=== PATIENT | female | born 1955 | race Caucasian/White ===

== ENCOUNTER 2018-12-01 13:07 | Emergency (ER) | payer SELFPAY ==
[~2018-12-01] VITALS: Ht 160 cm; Wt 68.9 kg
[2018-12-01 13:34] VITALS: BP 218/96
--- NOTE | 2018-12-01 14:04 | PHYS DOC ---
Past Medical History Past Medical History: Hypertension Additional Past Medical Histor: ECZEMA,PSORISIS Past Surgical History: Appendectomy, Tubal ligation Alcohol Use: None Drug Use: None Adult General Chief Complaint Chief Complaint: KNEE INJURY HPI HPI 63-year-old female presents to ER for complaints of right knee pain for the past 4 days. She denies any injury or falls. She reports she has had swelling since onset of discomfort. She reports she works at [employer] and stands for several hours during her shift which causes increased pain and swelling at the end of her work day. She denies skin discoloration or numbness/tingling. She reports she took Naproxen last night and again this morning at 10:30 a.m. She denies any pain or cramping in rt calf. She denies any previous hx of clots/ knee surg. She denies any recent travel. She denies inability to walk. She denies using cane/crutches. She denies any use of supportive wraps/braces to rt knee since onset of pain. Review of Systems Review of Systems Constitutional: Denies fever or chills [] Respiratory: Denies cough or shortness of breath [] Cardiovascular: No additional information not addressed in HPI [] Musculoskeletal: Reports pain and swelling rt knee- denies calf pain. Denies pain lt LE Integument: Denies rash or skin lesions [] Neurologic: Denies headache, focal weakness or sensory changes Psych: Reports anxiety with onset of pain and having to stand at work All other systems were reviewed and found to be within normal limits, except as documented in this note. Allergies Allergies Allergies Coded Allergies Type Severity Reaction Last Updated Verified No Known Drug Allergies 12/01/18 No Physical Exam Physical Exam Constitutional: Well developed, well nourished, no acute distress, non-toxic appearance. [] HENT: Normocephalic, atraumatic, oropharynx moist Eyes: Pupils equal, conjunctiva normal, no discharge. [] Neck: Normal range of motion, no tenderness, supple Cardiovascular: Heart rate regular rhythm, no murmur [] Lungs & Thorax: Resp. equal/nonlabored Skin: Warm, dry Extremities: No cyanosis, 2+ bilat. dorsalis pedis/posterior tibial. Lt LE exam NL with full ROM- no pain on palp. of extremity. Rt anterior knee tender on palp. with swelling- no palp. deformity and pt is able to perform full ROM reporting pain with ROM. No edema distal/proximal to rt knee or skin discoloration. Steady unassisted gait Neurologic: Alert and oriented X 3, normal motor function, normal sensory function, no focal deficits noted. [] Psychologic: Affect normal, judgement normal, mood normal. [] Current Patient Data Vital Signs Vital Signs Date Time Temp Pulse Resp B/P (MAP) Pulse Ox O2 Delivery O2 Flow Rate FiO2 12/01/18 13:34 98.2 69 18 218/96 (136) 99 Room Air 98.2 EKG EKG [] Radiology/Procedures Radiology/Procedures PROCEDURE: KNEE RIGHT 3V Right knee 3 views. HISTORY: Right knee pain and swelling 3 views were taken of the right knee. There is mild chondrocalcinosis. There is mild arthritis. There is calcification adjacent to the medial femoral condyle suggesting an old ligamentous injury. There is a joint effusion. IMPRESSION: 1. Chondrocalcinosis. 2. Joint effusion. 3. Mild arthritis. Electronically signed by: Micah Pablo MD (12/01/2018 2:20 PM) [facility] DICTATED and SIGNED BY: MICAH PABLO MD DATE: 12/01/18 4140 Course & Med Decision Making Course & Med Decision Making Pertinent Imaging studies reviewed. (See chart for details) 1505: Pt was evaluated in the ER for complaints of right knee pain and swelling denying any injury. Xray was obtained with report of "1. Chondrocalcinosis. 2. Joint effusion. 3. Mild arthritis" which was discussed with pt. Pt was offered Ibuprofen/tylenol while in ER and preferred no meds as she had taken naproxen at 10:30 a.m. Discussed plans for jose wrap to rt knee. Discussed f/u with orthopedic doctor for re-eval and further care- will provide referral info on discharge paperwork. Education provided on s&s to return to ER for and discharge instructions were discussed. Pt was anxious during ER visit and voiced concerns of her job and standing for hours as this wasn't the job she had applied for- pt encouraged to discuss this with her employer for possible different job role to avoid long standing periods. Discussed pt's elevated BP and she reports her BP tends to elevate with pain/ anxiety- with her reporting pain has made her anxious as she has been uncertain as to cause. Recheck of BP prior to discharge during discharge discussion was 189/93. Pt advised on monitoring at home and to have recheck with PCP. Pt advised on taking her BP med as Rx'd. Following jose wrap application to rt knee she remains vascular intact in rt LE with no skin discoloration distal/proximal to wrap. She reports some improvement in pain with wrap on and is noted to have steady unassisted gait in room. Discussed use of crutches- she felt comfortable with no crutches as she has been able to tolerate pain with walking. Dragon Disclaimer Dragon Disclaimer This electronic medical record was generated, in whole or in part, using a voice recognition dictation system. Departure Departure Impression: Primary Impression: Knee pain, right Additional Impression: Joint effusion of knee Disposition: HOME, SELF-CARE Condition: STABLE Referrals: MARY J[facility] (PCP) MARIYA OLIVEIRA II, MD Patient Instructions: Knee Effusion, [id number], Knee Pain, Knee Wraps ( Elastic Bandage) and RICE Additional Instructions: As discussed follow-up with orthopedics for reevaluation and further care. Tylenol and/or ibuprofen as needed for pain control as directed on container. Ice pack to affected area every 3-4 hours for 20-30 minutes at a time avoid direct ice contact to skin. Elevate extremity as much as possible. Problem Qualifiers MARIBELL OROZCO APRN Dec 01, 2018 14:04
--- NOTE | 2018-12-01 14:23 | RAD ---
Right knee 3 views. HISTORY: Right knee pain and swelling 3 views were taken of the right knee. There is mild chondrocalcinosis. There is mild arthritis. There is calcification adjacent to the medial femoral condyle suggesting an old ligamentous injury. There is a joint effusion. IMPRESSION: 1. Chondrocalcinosis. 2. Joint effusion. 3. Mild arthritis. Electronically signed by: Micah Pablo MD (12/01/2018 2:20 PM) [facility]
== END 2018-12-01 15:28 | disposition home or self-care (01) ==
LOC: ER 13:07
DX: M25.461 Effusion, right knee (principal); I10 Essential (primary) hypertension; Z90.89 Acquired absence of other organs; Z98.51 Tubal ligation status
CPT/HCPCS: 73562; 99283